=== PATIENT | male | born 1980 | race Caucasian/White ===

== ENCOUNTER 2016-08-17 | Emergency (ER) | payer BC ==
--- NOTE | 2016-08-17 09:17 | ED ---
Skin/Abscess/FB HPI - General Chief complaint: Skin/Abscess/Foreign Body Stated complaint: Rash Time Seen by Provider: 08/17/16 08:57 Source: patient, RN notes reviewed Mode of arrival: ambulatory Limitations: no limitations - History of Present Illness Initial comments: Patient is a 36-year-old male presents emergency room for evaluation of rash. Patient states he's been following up with a specialist regarding on and off diarrhea and weight loss for the past year. Patient states he notices when he has his episodes of diarrhea, he has a more prominent skin rash that is itchy and burning. Patient states yesterday the rash was worse. Patient states the rash has subsided today. Patient denies new body washes, shampoos, detergents, colognes. Patient denies contact with any new animals or plants. Patient denies trying any new foods. Patient denies any recent travel out of the country. Patient denies applying anything over the rash or taking any medication for the rash. Patient denies being placed on any new medications. Patient states the rash is over his chest and bilateral arms. Patient denies chest pain, shortness of breath, headache, dizziness, abdominal pain, fevers, chills. - Related Data Previous Rx's Medication Instructions Recorded predniSONE 20 mg PO DAILY #3 tab 08/17/16 Allergies Allergy/AdvReac Type Severity Reaction Status Date / Time No Known Allergies Allergy Verified 08/17/16 08:56 Review of Systems ROS Statement: Those systems with pertinent positive or pertinent negative responses have been documented in the HPI. ROS Other: All systems not noted in ROS Statement are negative. Past Medical History Additional Past Medical History / Comment(s): HX BLOOD IN STOOL, DIARRHEA History of Any Multi-Drug Resistant Organisms: None Reported Past Surgical History: Cholecystectomy Past Anesthesia/Blood Transfusion Reactions: No Reported Reaction Past Psychological History: No Psychological Hx Reported Smoking Status: Never smoker Past Alcohol Use History: Occasional Past Drug Use History: None Reported - Past Family History Mother Family Medical History: Deep Vein Thrombosis (DVT) General Exam - General Exam Comments Initial Comments: Sitting in exam room in no acute distress. Limitations: no limitations General appearance: alert, in no apparent distress Head exam: Present: atraumatic, normocephalic, normal inspection Eye exam: Present: normal appearance ENT exam: Present: normal exam Neck exam: Present: normal inspection Respiratory exam: Present: normal lung sounds bilaterally. Absent: respiratory distress Cardiovascular Exam: Present: regular rate, normal rhythm, normal heart sounds Extremities exam: Present: normal inspection Back exam: Present: normal inspection Neurological exam: Present: alert, oriented X3, CN II-XII intact, normal gait Psychiatric exam: Present: normal affect, normal mood Skin exam: Present: other (Diffuse, light pink papular rash over bilateral arms and chest. ) Course Vital Signs 08/17/16 08:52 Temperature 99.5 F Pulse Rate 77 Respiratory 20 Rate Blood Pressure 132/76 O2 Sat by Pulse 99 Oximetry Medical Decision Making - Medical Decision Making Patient is a 36-year-old male presents emergency room for evaluation of rash. Place patient on low-dose prednisone for a short period of time and have him follow-up with his primary care provider or specialist. Advised patient to take cool showers and to use skin sensitive soaps and lotions. Patient states he understands everything that was discussed with him. Return parameters discussed. Case discussed with Dr. Almaraz. Disposition Clinical Impression: Rash and nonspecific skin eruption Disposition: HOME SELF-CARE Condition: Good Instructions: Acute Rash (ED) Additional Instructions: Take prednisone as directed. Can also take Benadryl every 4-6 hours as needed. Cool showers. Skin sensitive lotions (CeraVe, Cetaphil, Eucerin). Please follow up with primary care provider in 1-2 days. If any new symptom arises, symptoms worsen or fever develops, return to ER as soon as possible. Prescriptions: predniSONE 20 mg PO DAILY #3 tab Referrals: Amado Siddiqui Jr, DO [Primary Care Provider] - 1-2 days Time of Disposition: 09:13
== END 2016-08-17 09:22 | disposition home or self-care (01) ==
DX: R21 Rash and other nonspecific skin eruption (principal)
CPT/HCPCS: 99282

== ENCOUNTER 2016-08-28 08:26 | Day surgery (SDC) | payer BC ==
[2016-08-22 15:04] VITALS: BMI 19.8
[~2016-08-28 08:26] MED LIST: HYDROmorphone 1 MG/ML 1 ML SYRINGE IVP PRN; LACTATED RINGERS 1,000 ML IV SCH; LIDOCAINE 1% 20 ML VIAL (10MG/ML) FOR IV START INTRADERMA PRN; MIDAZOLAM 2 MG/2 ML VIAL IV PRN
[2016-08-28 08:40] VITALS: RESP 16; TEMP 98.1
[2016-08-28] MEDS ORDERED: PROPOFOL 10 MG/ML 20 ML VIAL IV ONE (09:32)
[2016-08-28] MEDS ORDERED: LIDOCAINE 1% INJ 10MG/ML (20 ML MDV) ONE (09:32)
--- NOTE | 2016-08-28 10:14 | P.PCN ---
Date of Procedure: 08/28/16 Procedure(s) Performed: Procedure: Colonoscopy and biopsy. Preoperative diagnosis: Abdominal pain, diarrhea and weight loss. Postoperative diagnosis: Exam of the colon and terminal ileum within normal limits, biopsies obtained. Preparation: HalfLytely prep. Sedation: Was provided by anesthesia. Brief clinical history: The patient is a 36-year-old male who was evaluated in the office earlier this month because of abdominal pain and diarrhea which has been going on for at least 6 months. His workup in the past revealed mild duodenitis and loss of normal ileal fold pattern on upper GI small bowel follow- through in May of last year and some thickening in the left hemicolon on CT earlier that month. A colonoscopy in April 2016 was unremarkable but rectal biopsy showed minimal focal nonspecific inflammation. He was treated with antibiotics back then. The patient has history of mild anemia and occult positive stools. His celiac serology was negative. Because of the persistent symptoms and his weight loss this evaluation is scheduled to ascertain the absence of inflammatory bowel disease. Procedure: With the patient on his left lateral decubitus position and after informed consent and adequate sedation, the perianal area was inspected and it did not show any fissures or fistulas. There were no masses felt on digital rectal examination. The Olympus CFQ 160L colonoscope was then inserted in the rectum in the usual fashion and advanced to the cecum. I intubated the ileocecal valve and examined the terminal ileum. Terminal ileum and colon appeared healthy with no edema, erythema, friability, ulceration, exudation or spontaneous bleeding. No polyps or tumors were seen or any obvious diverticular disease or other pathology. I obtained biopsies from the terminal ileum and randomly from the colon then I retroflexed endoscope in the rectum before the endoscope was withdrawn. The patient tolerated the procedure well. Plan: The patient was reassured. Will await biopsy results. He will follow up in the office next month as planned and we would keep you updated on his progress.
[2016-08-28 10:29] VITALS: BP 102/60; PULSE 60
== END 2016-08-28 11:15 | disposition home or self-care (01) ==
LOC: ORWHC2ENDO 08:26
DX: K52.89 Other specified noninfective gastroenteritis and colitis (principal); R63.4 Abnormal weight loss; Z79.899 Other long term (current) drug therapy
CPT/HCPCS: 88305; 45380; J2001; J2704; 99153

== ENCOUNTER → 2017-06-18 | Outpatient (CLI) | payer OTHER ==
--- NOTE | 2017-06-18 12:27 | XR ---
EXAMINATION TYPE: XR hand complete LT DATE OF EXAM: 06/18/2017 CLINICAL HISTORY: Index finger pain with lacerations of the proximal phalanx. TECHNIQUE: Frontal, lateral and oblique images of the left hand are obtained. COMPARISON: None. FINDINGS: There is no acute fracture/dislocation evident in the left hand. The joint spaces in the l eft hand appear within normal limits. Focal soft tissue swelling and laceration are seen of the radia l aspect of the second proximal phalanx. IMPRESSION: Laceration and soft tissue swelling of the radial aspect of the proximal second phalanx w ithout evidence of acute fracture or dislocation.
== END | disposition home or self-care (01) ==
LOC: RADXRMAIN 11:47
PROVIDERS: ATTEND Emergency Medicine
DX: S61.211A Laceration without foreign body of left index finger without damage to nail, initial encounter (principal); M79.89 Other specified soft tissue disorders